=== PATIENT | male | born 1945 | race Caucasian/White ===

== ENCOUNTER 2016-12-28 08:36 | Inpatient (IN) ==
[2016-12-28] MEDS ORDERED: COMPAZINE PO PRN (12:33)
[2016-12-28] MEDS ORDERED: MOTRIN PO PRN (12:34)
[2016-12-28] MEDS ORDERED: HYDROCORTISONE 1% CREAM TOP PRN (12:34)
[2016-12-28] MEDS ORDERED: PREPARATION H SUPPOSITORY PR PRN (12:38)
[2016-12-28] MEDS ORDERED: TUCKS PADS TOP PRN (12:58)
[2016-12-28] MEDS ORDERED: TYLENOL PO PRN ×2 (13:03→13:12)
[2016-12-28] MEDS ORDERED: PERICOLACE PO PRN (13:05)
[2016-12-28] MEDS ORDERED: GLYCERIN ADULT PR PRN (13:06)
[2016-12-28] MEDS ORDERED: DULCOLAX PR PRN (13:06)
[2016-12-28] MEDS ORDERED: ROBITUSSIN-DM PO PRN (13:07)
[2016-12-28] MEDS ORDERED: MAALOX PLUS LIQUID PO PRN (13:07)
[2016-12-28] MEDS ORDERED: LOMOTIL PO PRN (13:09)
[2016-12-28] MEDS ORDERED: IMODIUM PO PRN (13:09)
[2016-12-28] MEDS ORDERED: COMPAZINE PR PRN (13:11)
[2016-12-28] MEDS ORDERED: LEVSIN PO PRN (13:12)
[2016-12-28] MEDS ORDERED: TYLENOL PR PRN (13:13)
[2016-12-28] MEDS ORDERED: EUCERIN CREAM TOP PRN (13:13)
[2016-12-28] MEDS ORDERED: BENADRYL PO PRN (13:14)
[2016-12-28] MEDS ORDERED: PYRIDIUM PO PRN (13:14)
[2016-12-28] MEDS ORDERED: HALDOL PO PRN (13:16)
[2016-12-28] MEDS ORDERED: DIFLUCAN PO PRN ×2 (13:18→13:21)
[2016-12-28] MEDS ORDERED: DESYREL PO PRN (13:21)
[2016-12-28] MEDS ORDERED: VISINE OPH DROPS OPH PRN (13:33)
[2016-12-28] MEDS ORDERED: BIDEX PO PRN (13:34)
--- NOTE | 2016-12-28 18:42 | HISTORY AND PHYSICAL ---
CHIEF COMPLAINT: Respite care for 5 days. HISTORY OF PRESENT ILLNESS: This is a 70-year-old pleasant, white gentleman under the care of hospice admitted to the hospital for respite care for 5 days. He was seen last here in June. Now he complains of left great toe infection as per the caregiver. It looks like he has an ingrown toenail with paronychia. We discussed the options. He has a Living Will, DNR. PAST MEDICAL HISTORY: Atypical parkinsonism, osteoarthritis. PAST SURGICAL HISTORY: [place] tooth extraction. Right shoulder replacement. MEDICATIONS: Trazodone 50 at bedtime, Senokot 1 tablet daily, scopolamine patch every 3 days, Hyzaar tab daily, Ativan as needed, Diflucan 200 once daily, Atrovent drops as needed, aspirin 80 mg daily. ALLERGIES: Not known. SOCIAL HISTORY: . Living in [place]. No smoking. No alcohol. 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 Declining activities of daily living as well as instrumental activities. FAMILY HISTORY: Mom of old age. Father of heart attack. REVIEW OF SYSTEMS: Confused. Not able to give any meaningful history. PHYSICAL EXAMINATION: VITAL SIGNS: Afebrile. Pulse is 67. Blood pressure 145/70. Height 6 feet 3 inches. HEENT EXAMINATION: Atraumatic, normocephalic. Pupils equal and reactive to light. NECK: Supple. No lymphadenopathy. No goiter. CHEST: Bilateral air entry. HEART: Sounds are regular ABDOMEN: Belly is soft, nontender. Good bowel sounds. EXTREMITIES: Pulses are palpable. Onychomycosis on the right great toenail. Left great toenail has paronychia with ingrown toenail noted. No obvious neurological deficits. ASSESSMENT AND PLAN: A 70-year-old, white gentleman admitted to the hospital for respite care for 5 days. 1. Atypical parkinsonism. No improvement after using several drugs. 2. Gastrointestinal prophylaxis with Pepcid. 3. Hypertension on losartan 50/12.5 daily. 4. Care of the skin, bladder, and bowels. 5. Living Will, DNR. 6. Left ingrown toenail with paronychia. Bactrim double-strength 1 tablet p.o. b.i.d. We will discuss with hospice people about removing the nail. 7. Continue present palliative care. Discussed with the caregiver. cc: Cole Rosales MD
[2016-12-28] MEDS: SEPTRA DS PO SCH (20:30)
[2016-12-28] MEDS: ATIVAN PO PRN (20:30)
[2016-12-29] MEDS: ATIVAN PO PRN ×2 (00:35→04:49)
--- NOTE | 2016-12-29 08:39 | PROGRESS NOTE ---
DATE: 12/29/2016 SUBJECTIVE: Admitted to the hospital respite care with no complaints. Eating by himself. OBJECTIVE: Vital Signs: On examination afebrile. Vitals are stable. 260 pounds. Satting 96%. HEENT: Exam within normal limits. Neck: Supple. Chest: Clear. Heart: Sounds are regular. Abdomen: Belly is soft, nontender. Good bowel sounds. Extremities: Left great toenail paronychia with ingrown toenail. ASSESSMENT AND PLAN: 1. Left great toe ingrown nail with paronychia. Continue on Bactrim. We will discuss with the hospice people about the plans for excision of the nail. 2. Continue present respite care. LEVEL OF DOCUMENTATION: 15 minutes. cc: Cole Rosales MD
[2016-12-29] MEDS: PEPCID PO SCH (08:41)
[2016-12-29] MEDS: SEPTRA DS PO SCH ×2 (08:41→20:47)
[2016-12-29] MEDS: PERICOLACE PO SCH (08:42)
[2016-12-29] MEDS: ASPIRIN PO SCH (08:42)
[2016-12-29] MEDS: BACTROBAN OINTMENT TOP SCH (08:42)
[2016-12-29] MEDS: HYZAAR 50/12.5 MG PO SCH (08:42)
[2016-12-29] MEDS: HYDROGEN PEROXIDE SOLUTION TOP SCH (08:47)
[2016-12-29] MEDS: CHLOR-TRIMETON PO PRN (21:29)
[2016-12-29] MEDS: ATROPINE 1 % OPHTH SOLN PRN (21:29)
[2016-12-30] MEDS: HYDROGEN PEROXIDE SOLUTION TOP SCH (08:13)
[2016-12-30] MEDS: BACTROBAN OINTMENT TOP SCH (08:14)
[2016-12-30] MEDS: PERICOLACE PO SCH (08:14)
[2016-12-30] MEDS: SEPTRA DS PO SCH ×2 (08:15→20:58)
[2016-12-30] MEDS: ASPIRIN PO SCH (08:15)
[2016-12-30] MEDS: PEPCID PO SCH (08:15)
[2016-12-30] MEDS: HYZAAR 50/12.5 MG PO SCH (08:15)
[2016-12-30] MEDS ORDERED: TRANSDERM-SCOP TD PRN (09:00)
--- NOTE | 2016-12-30 19:27 | PROGRESS NOTE ---
DATE: 12/30/2016 SUBJECTIVE: The patient was admitted to respite care for 5 days. Left great toe paronychia slowly improving. Significant ingrown toenail laterally noted. Unable to communicate other than pain in the left great toe. OBJECTIVE: Signs: Stable, afebrile, pulse is 67, blood pressure is 148/79. Pulse oximetry 95% on room air. HEENT: Within normal limits. Neck: Supple. Chest: Clear. Heart: Sounds are regular. Belly is soft, nontender. Good bowel sounds. No masses palpable. Neurologic: No obvious neurological deficits. Extremities: Left great toenail inflamed. ASSESSMENT AND PLAN: 1. Atypical parkinsonism. Continue on palliative services. 2. Left great toe paronychia with ingrown nail. Continue on Bactrim. Discussed hospice people. Continue the respite care until Monday. Change to the routine care. If no better, Surgical consult to remove the nail. LEVEL OF DOCUMENTATION: 25 minutes. cc: Cole Rosales MD
--- NOTE | 2016-12-31 08:37 | PROGRESS NOTE ---
DATE: 12/31/2016 SUBJECTIVE: Mr. Dillard is laying in the bed eating his breakfast. No complaint. Family member was present concerned about infected left great toe. The patient is on local wound care and p.o. antibiotics. The patient is on respite care. No high-grade fever or chills. No nausea, vomiting. Denied any chest pain, unusual cough expectoration. The patient does have history of Parkinson disease, osteoarthritis. The history part otherwise was limited. OBJECTIVE: Vital Signs: Noted. Neck: Supple. No JVD. Lungs: Bibasilar crepitations. Heart: S1 and S2 heard. Abdomen: Soft, globular. Bowel sound present. Extremities: Patient does have dressed wound on the left great toe. No acute DVT. 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 CONSIDERATION: 1. Paronychia, left great toe. 2. Parkinson disease. 3. Dementia. PLAN: We will continue current treatment, comfort care. Family member aware. Plan discussed. They are in agreement. cc: MD Cole High MD
[2016-12-31] MEDS: BACTROBAN OINTMENT TOP SCH (09:48)
[2016-12-31] MEDS: SEPTRA DS PO SCH ×2 (09:48→20:48)
[2016-12-31] MEDS: HYDROGEN PEROXIDE SOLUTION TOP SCH (09:48)
[2016-12-31] MEDS: PERICOLACE PO SCH (09:49)
[2016-12-31] MEDS: PEPCID PO SCH (09:49)
[2016-12-31] MEDS: HYZAAR 50/12.5 MG PO SCH (09:49)
[2016-12-31] MEDS: ASPIRIN PO SCH (09:49)
[2017-01-01] MEDS: ASPIRIN PO SCH (08:38)
[2017-01-01] MEDS: SEPTRA DS PO SCH ×2 (08:38→20:59)
[2017-01-01] MEDS: PEPCID PO SCH (08:38)
[2017-01-01] MEDS: HYZAAR 50/12.5 MG PO SCH (08:38)
[2017-01-01] MEDS: PERICOLACE PO SCH (08:38)
[2017-01-01] MEDS: HYDROGEN PEROXIDE SOLUTION TOP SCH (10:39)
[2017-01-01] MEDS: BACTROBAN OINTMENT TOP SCH (10:39)
--- NOTE | 2017-01-01 11:21 | PROGRESS NOTE ---
DATE: 01/01/2017 SUBJECTIVELY: Mr. Dillard is doing better. He does not seem to be in any pain. No fever or chills. No nausea or vomiting. The patient did have a bowel movement. Oral intake is fair. The patient is on respite care. OBJECTIVE: Vital signs: Reviewed. Lungs: Bilateral good air entry present. CVS: S1 and S2 heard. Abdomen: Soft, globular. Bowel sounds present. Extremities: No cyanosis, clubbing. No acute DVT. The patient does have a left infected great toe. CONSIDERATION: The patient's problems include: 1. Parkinson disease. 2. Dementia. 3. Infected left great toe. PLAN: The patient is on respite care. Clinically comfortable. We will continue current treatment. cc: MD Cole High MD
[2017-01-01] MEDS: TUMS EXTRA STRENGTH PO PRN ×2 (14:22→21:47)
[2017-01-01] MEDS: CHLOR-TRIMETON PO PRN (23:18)
[2017-01-01] MEDS: ATROPINE 1 % OPHTH SOLN PRN (23:37)
[2017-01-02] MEDS: TUMS EXTRA STRENGTH PO PRN ×3 (04:03→16:37)
[2017-01-02] MEDS: ATROPINE 1 % OPHTH SOLN PRN (04:05)
[2017-01-02] MEDS: CHLOR-TRIMETON PO PRN (04:05)
[2017-01-02] MEDS: PERICOLACE PO SCH (09:03)
[2017-01-02] MEDS: SEPTRA DS PO SCH (09:03)
[2017-01-02] MEDS: BACTROBAN OINTMENT TOP SCH (09:04)
[2017-01-02] MEDS: HYZAAR 50/12.5 MG PO SCH (09:04)
[2017-01-02] MEDS: ASPIRIN PO SCH (09:04)
[2017-01-02] MEDS: PEPCID PO SCH (09:04)
[2017-01-02] MEDS: HYDROGEN PEROXIDE SOLUTION TOP SCH (09:04)
[2017-01-02 10:24] VITALS: BP 144/52
--- NOTE | 2017-01-02 12:32 | EKG Report ---
Test Performed on : 01/02/2017 11:03:00 AM Test Reason : Surgery Blood Pressure : / mmHG Vent. Rate : 093 BPM Atrial Rate : 093 BPM P-R Int : 182 ms QRS Dur : 088 ms QT Int : 342 ms P-R-T Axes : 059 -37 025 degrees QTc Int : 425 ms Sinus rhythm. with occasional premature ventricular complexes. Left axis deviation Inferior infarct , age undetermined Abnormal ECG When compared with ECG of 13-JUL-2016 09:55, Criteria for Anterior infarct are no longer present Criteria for Anterolateral infarct are no longer present Inferior infarct is now present Confirmed by Phi Nunez MD ([id number]) on 01/03/2017 12:27:13 PM
--- NOTE | 2017-01-02 16:15 | Diag Imaging Result Doc PS360 ---
EXAM: FOOT 2 VIEWS LEFT HISTORY: TO FOLLOW 3 PHASE BONE SCAN TECHNIQUE: Left foot two views COMMENT: There is an accessory ossicle adjacent to the cuboid and posterior fifth metatarsal. There is no evidence of acute fracture or dislocation periosteal reaction or lysis. There are spurs in the calcaneus. IMPRESSION: No acute bony disease. Electronically signed by Con Huntley 01/02/2017 4:13 PM
--- NOTE | 2017-01-02 16:23 | Diag Imaging Result Doc PS360 ---
EXAM: 3 PHASE BONE SCAN HISTORY: R/O osteo left great toe TECHNIQUE: Patient was injected with 28.6 mCi of technetium 99m MDP and three phase scanning is performed over the feet and ankles. COMMENT: There is slightly increased flow activity on the left compared to the right. There is increased blood pool activity over the left great toe and to some extent the third toe. There is only minimal increased activity over the distal great toe on the left on the static bone images. IMPRESSION: Nonspecific findings which could indicate osteoarthritis in the interphalangeal joint of the great toe on the left. No specific indication of osteomyelitis. Electronically signed by Con Huntley 01/02/2017 4:21 PM
--- NOTE | 2017-01-03 03:42 | PROGRESS NOTE ---
DATE: 01/02/2017 SUBJECTIVE: The patient did finish the respite care today. Followup on left ingrown toenail with paronychia slowly improving. Discussed with case management and hospice people. We will discharge the patient from the respite care and we will readmit as an observation status since the patient is not able to go home. REVIEW OF SYSTEMS: None reported. PHYSICAL EXAMINATION: Vital Signs: Afebrile. Vital signs are stable. HEENT Examination: Within normal limits. Neck: Supple. Chest: Clear. Heart: Heart sounds are regular. Abdomen: Belly is soft, nontender. Good bowel sounds. Extremities: Left great toe has paronychia with great ingrown toenail. Neurologic: No obvious neurological deficits. ASSESSMENT AND PLAN: A 71-year-old, white male discharged from the respite care. PLAN OF CARE: He is readmitted to the hospital for observation for nail excision. Consult with Dr. Swan. Scheduled for bone scan today. After the nail excision, will be discharged home with palliative services. LEVEL OF DOCUMENTATION: 35 minutes. cc: Cole Rosales MD
--- NOTE | 2017-01-05 05:15 | DISCHARGE SUMMARY ---
ADMISSION DATE: 12/28/2016 DISCHARGE DATE: 01/04/2017 DATE OF ADMISSION: 12/28/2016 DATE OF DISCHARGE: 01/03/2017 as a hospice respite care. READMISSION: 01/03/2017 for left great ingrown nail with paronychia. DATE OF DISCHARGE: 01/04/2017. BRIEF HISTORY: Please see the H and P that was done on 12/28/2016. In brief, he is a 71-year-old white gentleman under the hospice care. He was admitted to the hospital respite care for 5 days. The patient's was getting cataract surgery. As a result, he was hospitalized for 5 days. During this hospital course, it was complicated by left great toe infection due to paronychia from ingrown nail. He was given p.o. Bactrim for secondary infection which was improving. He was discharged from the respite care for 5 days and readmitted as an observation status for the procedure. After respite care, patient was seen by Dr. Swan. Bone scan was negative for osteomyelitis. He was taken to the OR with left partial matrixectomy done. Postoperative course was uneventful. Findings discussed with the patient and discharged back home, hospice with palliative services. LABORATORY THROUGH THIS ADMISSION: CBC: White cell count 8.3, hematocrit 44, platelets 375,000. SMA7: LFTs were normal. DISCHARGE INSTRUCTIONS ARE FOLLOWS: Aspirin 80 mg daily, Pepcid 20 daily, ibuprofen as needed for pain, Hyzaar 50/12.5 daily, scopolamine patch every 72 hours, Precose 1 tablet daily, Trazodone 50 mg as needed. Continue the local wound care. The patient was given [place] for pain as well as Keflex. We will see his progress through the IDG meetings. cc: MD Cole Aparicio MD [facility]
== END 2017-01-02 18:52 | disposition hospice, home (50) ==
LOC: DIRADM 08:36 → 3N 11:12
PROVIDERS: ADMIT Internal Medicine; ATTEND Internal Medicine

== ENCOUNTER → 2017-01-04 11:14 | Observation (INO) ==
[2017-01-02] MEDS: TUMS EXTRA STRENGTH PO PRN (20:00)
[2017-01-02] MEDS: PEPCID PO SCH (21:59)
[2017-01-03 07:11] LABS: MANUAL DIFF NEEDED? NO
[2017-01-03 07:22] LABS: BASO% 0.5 % (0.0-0.8); EOS# 0.06 X1000 (0.0-0.7); EOS% 0.7 % (0.0-10.0); HEMATOCRIT 44.5 % (42.0-52.0); IMM GRAN# 0.02 X1000 (0.0-0.04); IMM GRAN% 0.2 % (0.0-0.5); LYMPH# 2.27 X1000 (1.2-3.4); LYMPH% 27.1 % (20.5-51.1); MCH 29.7 PG (27-31); MCHC 33.7 g/dL (33-37); MCV 88.1 FL (81-99); MONO# 0.93 X1000 (0.11-0.59); MONO% 11.1 % (1.7-9.3); MPV 9.7 FL (7.4-10.4); NEUT% 60.4 % (42.2-75.2); PLT 375 X1000 (130-400); RBC 5.05 XMIL (4.7-6.1)
[2017-01-03 07:29] LABS: AGAP 11; ALBUMIN 3.5 g/dL (3.5-5.0); ALKALINE PHOSPHATASE 55 U/L (32-122); BUN 16 mg/dL (8-22); CALCIUM 8.9 mg/dL (8.8-10.2); CHLORIDE 99 mmol/L (98-107); COSMO 275; GOT 15 U/L (10-34); GPT 29 U/L (10-44); POTASSIUM 3.8 mmol/L (3.5-5.1); SODIUM 137 mmol/L (136-145); TCO2 27 mmol/L (25-35); TOTAL PROTEIN 6.5 g/dL (6.3-8.3)
[2017-01-03] MEDS: HYZAAR 50/12.5 MG PO SCH (08:45)
[2017-01-03] MEDS: PEPCID PO SCH (08:45)
[2017-01-03] MEDS: ASPIRIN EC PO SCH (11:11)
[2017-01-03] MEDS: PERICOLACE PO SCH (11:11)
[2017-01-03] MEDS: TUMS EXTRA STRENGTH PO PRN (13:00)
--- NOTE | 2017-01-03 17:41 | OPERATIVE NOTE ---
PROCEDURE DATE: 01/03/2017 PREOPERATIVE DIAGNOSES: 1. Severe dementia, Parkinson's. 2. Infected left great toenail. POSTOPERATIVE DIAGNOSES: 1. Severe dementia, Parkinson's. 2. Infected left great toenail. PROCEDURE: Simple extraction left great toenail with debridement. The patient was brought to the operating room. After satisfactory induction of IV and MAC anesthesia, his left foot was prepped and draped in the appropriate manner. Digital block was performed with 0.5% Marcaine and Xylocaine plain. The nail was simply extracted. Hypertrophic granulation tissue was debrided with the curette. A sterile dressing was applied. He was subsequently transferred to recovery. ESTIMATED BLOOD LOSS: Was 2-3 mL. cc: MD Cole Aapricio MD
--- NOTE | 2017-01-03 22:26 | PROGRESS NOTE ---
DATE: 01/03/2017 SUBJECTIVE: The patient was transferred the care to the routine today for the left great toe paronychia infection. Complains of pain out of the bed. I discussed with the . She wants this send him to rehab. REVIEW OF SYSTEMS: None reported. OBJECTIVE: Vital Signs: Stable. HEENT: Within normal limits. Neck: Supple. Chest: Clear. Heart: Sounds are regular. Extremities: Left great toe was bandage was seen. INVESTIGATIONS: CBC is normal. SMA7 is normal. Bone scan was negative. ASSESSMENT AND PLAN: 1. Paronychia due to ingrown toenail. Going for partial matricectomy by Dr. Swan. 2. child and family services specialist consult for disposition. We will discuss with the hospice nurse. Continue present palliative services and will follow up. LEVEL OF DOCUMENTATION: About 15 minutes. cc: Cole Rosales MD MTDD
[2017-01-04 08:23] VITALS: BP 157/92
[2017-01-04] MEDS: PERICOLACE PO SCH (10:15)
[2017-01-04] MEDS: HYZAAR 50/12.5 MG PO SCH (10:15)
[2017-01-04] MEDS: PEPCID PO SCH (10:15)
[2017-01-04] MEDS: ASPIRIN EC PO SCH (10:15)
[2017-01-04] MEDS: TUMS EXTRA STRENGTH PO PRN (10:21)
[~2017-01-04 11:14] MED LIST: ATIVAN MISC PRN; ATIVAN PO PRN; ATROPINE 1 % OPHTH SOLN MISC PRN; BENADRYL PO PRN; CHLOR-TRIMETON PO PRN; COMPAZINE PO PRN; COMPAZINE PR PRN; DESYREL PO PRN; DIFLUCAN PO PRN; DIPRIVAN 1% ONE; DULCOLAX PR PRN; EUCERIN CREAM TOP PRN; FENTANYL ONE; FLEET ENEMA PR PRN; GLYCERIN ADULT PR PRN; HALDOL PO PRN; HYDROCORTISONE 1% OINTMENT TOP SCH; IMODIUM PO PRN; KEFZOL 1 GM/D5W 1 GM/50 ML IVPB ONE; LEVSIN PO PRN; LOMOTIL PO PRN; MAALOX PLUS LIQUID PO PRN; MARCAINE 0.25% PF ONE; MOTRIN PO PRN; NEOSPORIN OINTMENT TUBE ONE; PEPCID PO SCH; PREPARATION H SUPPOSITORY PR PRN; PYRIDIUM PO PRN; ROBITUSSIN-DM PO PRN; TRANSDERM-SCOP TD SCH; TUCKS HEMORRHOIDAL OINTMENT PR PRN; TYLENOL PO PRN; TYLENOL PR PRN; XYLOCAINE 1% ONE
--- NOTE | 2017-01-05 05:15 | DISCHARGE SUMMARY ---
ADMISSION DATE: 12/28/2016 DISCHARGE DATE: 01/04/2017 DATE OF ADMISSION: 12/28/2016 DATE OF DISCHARGE: 01/03/2017 as a hospice respite care. READMISSION: 01/03/2017 for left great ingrown nail with paronychia. DATE OF DISCHARGE: 01/04/2017. BRIEF HISTORY: Please see the H and P that was done on 12/28/2016. In brief, he is a 71-year-old white gentleman under the hospice care. He was admitted to the hospital respite care for 5 days. The patient's was getting cataract surgery. As a result, he was hospitalized for 5 days. During this hospital course, it was complicated by left great toe infection due to paronychia from ingrown nail. He was given p.o. Bactrim for secondary infection which was improving. He was discharged from the respite care for 5 days and readmitted as an observation status for the procedure. After respite care, patient was seen by Dr. Swan. Bone scan was negative for osteomyelitis. He was taken to the OR with left partial matrixectomy done. Postoperative course was uneventful. Findings discussed with the patient and discharged back home, hospice with palliative services. LABORATORY THROUGH THIS ADMISSION: CBC: White cell count 8.3, hematocrit 44, platelets 375,000. SMA7: LFTs were normal. DISCHARGE INSTRUCTIONS ARE FOLLOWS: Aspirin 80 mg daily, Pepcid 20 daily, ibuprofen as needed for pain, Hyzaar 50/12.5 daily, scopolamine patch every 72 hours, Precose 1 tablet daily, Trazodone 50 mg as needed. Continue the local wound care. The patient was given [place] for pain as well as Keflex. We will see his progress through the IDG meetings. cc: MD Cole Aparicio MD [facility]
== END | disposition hospice, home (50) ==
LOC: 3N
PROVIDERS: ADMIT Internal Medicine; ATTEND Internal Medicine